=== PATIENT | female | born 1995 | race African-American/Black ===

== ENCOUNTER 2019-05-21 13:10 | Emergency (ER) | payer MEDICAID, OTHER ==
[~2019-05-21] VITALS: Ht 154.9 cm; Wt 64.0 kg
[2019-05-21 13:20] VITALS: BP 126/79
[2019-05-21] MEDS ORDERED: IBUPROFEN 800 MG TAB PO ONE (14:00)
== END 2019-05-21 14:29 | disposition home or self-care (01) ==
LOC: ER 13:10
DX: G44.209 Tension-type headache, unspecified, not intractable (principal); J45.909 Unspecified asthma, uncomplicated; I10 Essential (primary) hypertension
CPT/HCPCS: 81002; 81025

== ENCOUNTER 2020-01-01 14:58 | Emergency (ER) | payer MEDICAID ==
[~2020-01-01] VITALS: Ht 154.9 cm; Wt 67.1 kg
[2020-01-01 15:12] VITALS: BP 121/74
== END 2020-01-01 17:52 | disposition home or self-care (01) ==
LOC: ER 14:58
DX: M72.2 Plantar fascial fibromatosis (principal); J45.909 Unspecified asthma, uncomplicated; I10 Essential (primary) hypertension
CPT/HCPCS: 73630

== ENCOUNTER 2022-12-26 16:28 | Emergency (ER) | payer MEDICAID ==
[~2022-12-26] VITALS: Ht 154.9 cm; Wt 59.3 kg
[2022-12-26 16:37] VITALS: BP 119/70; PULSE 92; RESP 16; TEMP 98.2; O2SAT 99
[2022-12-26] MEDS ORDERED: CLIN300C70 PO (17:12)
== END 2022-12-26 17:32 | disposition home or self-care (01) ==
LOC: ER 16:28
DX: K04.7 Periapical abscess without sinus (principal); I10 Essential (primary) hypertension; J45.909 Unspecified asthma, uncomplicated; Z79.2 Long term (current) use of antibiotics; Z88.0 Allergy status to penicillin
CPT/HCPCS: 41800